=== PATIENT | female | born 1980 | race African-American/Black ===

== ENCOUNTER 2017-04-11 17:16 | Emergency (ER) | payer OTHER ==
[~2017-04-11] VITALS: Ht 165.1 cm; Wt 134.6 kg
[~2017-04-11 17:16] MED LIST: CLEOCIN300 MG PO; HYDROCHLOROTHIA25 MG PO; LEXAPRO10 MG PO; MECLIZINE HCL25 MG PO; PERCOCET 5/31 TABLET PO; TYLENOL WITH C1 EACH PO
[2017-04-11 19:55] LABS: EOSINOPHIL (%) 3.7 % (0-5); EOSINOPHIL COUNT 0.3 K/uL (0-0.3); IMMATURE GRANULOCYTE (%) 0.1 % (0.0-0.7); INSTRUMENT ABS NEUTROPHIL CT 2.2 K/uL; LYMPHOCYTE COUNT 3.8 K/uL (1.0-2.8); MCH 29.6 PG (29.0-34.0); MCV 89.8 FL (83-99); MEAN PLAT.VOLUME 10.8 uM^3 (9.5-12.4); MONOCYTE (%) 6.7 % (3-12); MONOCYTE COUNT 0.5 K/uL (0-0.8); NEUTROPHIL (%) 32.7 % (45-76); NEUTROPHIL COUNT 2.2 K/uL (1.8-6.4); PLATELET COUNT 249 K/uL (156-360); RBC DIS.WIDTH-CV 15.7 % (11.8-14.6); RBC DIS.WIDTH-SD 51.7 % (39-53); RED BLOOD COUNT 4.12 M/uL (3.80-5.20); WHITE BLOOD COUNT 6.7 K/uL (4.1-10.2)
[2017-04-11 20:03] LABS: CHLORIDE 104 mEq/L (99-109); POTASSIUM 4.1 mEq/L (3.7-5.4); SODIUM 137 mEq/L (136-147)
[2017-04-11 20:04] LABS: GLUCOSE 81 mg/dL (70-99)
[2017-04-11 20:06] LABS: ANION GAP 9 MEQ/L (2-14); PROTHROMBIN TIME 11.8 SEC (10.2-12.9)
[2017-04-11 20:08] LABS: GFR ESTIMATE (CALCULATED) > 59 mL/min/
[2017-04-11 20:09] LABS: UREA NITROGEN (BUN) 8 mg/dL (9-23)
[2017-04-11] MEDS ORDERED: MOTRIN800 MG PO (20:36)
[2017-04-11 20:45] VITALS: BP 127/80
== END 2017-04-11 20:48 | disposition home or self-care (01) ==
LOC: EME 17:16
PROVIDERS: Emergency Medicine
DX: M79.662 Pain in left lower leg (principal); M79.89 Other specified soft tissue disorders; F17.200 Nicotine dependence, unspecified, uncomplicated
CPT/HCPCS: 80048; 85025; 85610; 93971; 99281; 99283

== ENCOUNTER 2017-09-29 20:50 | Observation (INO) | payer OTHER ==
[~2017-09-29] VITALS: Ht 165.1 cm; Wt 136.4 kg
[~2017-09-29 20:50] MED LIST changes: +MOTRIN800 MG PO
[2017-09-29 21:24] LABS: HEMOGLOBIN 12.9 G/DL (11.9-15.5); MCH 29.7 PG (29.0-34.0); MCHC 33.9 G/DL (30.0-36.0); MCV 87.4 FL (83-99); RBC DIS.WIDTH-CV 15.4 % (11.8-14.6); RED BLOOD COUNT 4.35 M/uL (3.80-5.20); WHITE BLOOD COUNT 7.1 K/uL (4.1-10.2)
[2017-09-29 21:28] LABS: PLATELET COUNT 235 K/uL (156-360)
[2017-09-29 21:35] LABS: CHLORIDE 105 mEq/L (99-109); POTASSIUM 3.5 mEq/L (3.7-5.4); SODIUM 141 mEq/L (136-147)
[2017-09-29 21:37] LABS: GLUCOSE 87 mg/dL (70-99)
[2017-09-29 21:41] LABS: CREATININE 0.8 mg/dL (0.6-1.3); GFR ESTIMATE (CALCULATED) > 59 mL/min/
[2017-09-29 21:42] LABS: UREA NITROGEN (BUN) 10 mg/dL (9-23)
[2017-09-29 21:47] LABS: TROP-I INTERPRETATION NEGATIVE; TROPONIN-I < 0.01 ng/mL (0.0-0.30)
[2017-09-29] MEDS ORDERED: HYDROCHLOROTHIA25 MG PO (22:12)
[2017-09-29] MEDS ORDERED: ERGOCALCIF50000 UNIT PO (22:12)
[2017-09-29] MEDS ORDERED: ATENOLOL25 MG PO (22:12)
[2017-09-29] MEDS ORDERED: BUPROPION XL150 MG PO (22:12)
[2017-09-29 22:30] LABS: QUANTITATIVE HCG < 4.0 MIU/ML
[2017-09-30 03:10] VITALS: BP 130/75
[2017-09-30 03:12] LABS: HDL CHOLESTEROL 36 MG/DL (Desirable>=50); LDL CHOLESTEROL 112 mg/dL (Desirable<100); NON-HDL CHOLESTEROL 129 mg/dL (Desirable<160); TOTAL CHOLESTEROL 165 mg/dL (Desirable<200); TRIGLYCERIDES 87 MG/DL (Normal: <150)
[2017-09-30 04:44] LABS: HEMOGLOBIN 12.1 G/DL (11.9-15.5); MCHC 34.6 G/DL (30.0-36.0); MCV 86.6 FL (83-99); PLATELET COUNT 204 K/uL (156-360); RBC DIS.WIDTH-CV 15.1 % (11.8-14.6); RBC DIS.WIDTH-SD 48.5 % (39-53); RED BLOOD COUNT 4.04 M/uL (3.80-5.20)
[2017-09-30 05:05] LABS: ALBUMIN 3.6 g/dL (3.2-4.8); CHLORIDE 107 mEq/L (99-109); SODIUM 140 mEq/L (136-147)
[2017-09-30 05:08] LABS: GLUCOSE 144 mg/dL (70-99); TOTAL PROTEIN 6.1 g/dL (6.4-8.3)
[2017-09-30 05:09] LABS: TROP-I INTERPRETATION NEGATIVE; TROPONIN-I < 0.01 ng/mL (0.0-0.30)
[2017-09-30 05:10] LABS: TOTAL BILIRUBIN 0.2 mg/dL (0.0-1.0)
[2017-09-30 05:11] LABS: ALKALINE PHOSPHATASE 55 IU/L (3-129); CREATININE 0.7 mg/dL (0.6-1.3); GFR ESTIMATE (CALCULATED) > 59 mL/min/
[2017-09-30 05:12] LABS: UREA NITROGEN (BUN) 11 mg/dL (9-23)
[2017-09-30 05:13] LABS: AST (GOT) 11 IU/L (2-34)
[2017-09-30 05:14] LABS: ALT (GPT) 12 IU/L (3-49)
[2017-09-30 07:40] VITALS: BP 125/60
[2017-09-30 10:32] LABS: TROP-I INTERPRETATION NEGATIVE; TROPONIN-I < 0.01 ng/mL (0.0-0.30)
[2017-09-30 12:09] VITALS: BP 128/66
[2017-09-30] MEDS ORDERED: ASPIR-LOW81 MG PO (13:12)
== END 2017-09-30 14:38 | disposition home or self-care (01) ==
LOC: EME 20:50 → EDOF 22:57 → ENRESERV 22:59 → 4SOUTH 09-30 01:38
PROVIDERS: Internal Medicine
DX: R07.89 Other chest pain (principal); I11.9 Hypertensive heart disease without heart failure; E66.01 Morbid (severe) obesity due to excess calories; Z68.43 Body mass index [BMI] 50.0-59.9, adult; F32.9 Major depressive disorder, single episode, unspecified; F17.200 Nicotine dependence, unspecified, uncomplicated; Z88.0 Allergy status to penicillin; Z79.82 Long term (current) use of aspirin
CPT/HCPCS: 71046; 80048; 80053; 80061; 84484; 84702; 85027; 93005; 99281; 99285; G0378